=== PATIENT | female | born 1940 | race Caucasian/White ===

== ENCOUNTER 2016-07-19 19:25 | Observation (INO) | payer OTHER ==
[~2016-07-19] VITALS: Ht 154.9 cm; Wt 67.8 kg
[~2016-07-19 19:25] MED LIST: ALLERGY RELIEF10 M1 PO; AMBIZINE25 MG PO; ATENOLOL50 MG PO; BACTRIM,SEPT1 TABLET PO; BUPROPION HCL75 MG PO; CLARITIN10 M3 PO; CLONAZEPAM1 MG PO; COUMADIN1 MG PO; DIAZEPAM5 MG PO; FLEXERIL10 MG PO; HYDROCHLOROTHIA50 MG PO; Levaquin PO; OMEPRAZOLE20 M2 PO; PRILOSEC20 MG PO; SERTRALINE HCL50 MG PO; SIMVASTATIN40 MG PO; TRAMADOL HCL50 MG PO; TYLENOL EXTRA500 MG PO; ULTRAM50 MG PO; VICODIN 5-3001 EACH PO; ZOLOFT25 MG PO
[2016-07-19 20:10] LABS: HEMATOCRIT 36.9 % (36.0-46.0); MCH 26.4 PG (29.0-34.0); MCHC 30.9 G/DL (30.0-36.0); MCV 85.4 FL (83-99); MEAN PLAT.VOLUME 9.5 uM^3 (9.5-12.4); PLATELET COUNT 225 K/uL (156-360); RBC DIS.WIDTH-CV 23.5 % (11.8-14.6); RED BLOOD COUNT 4.32 M/uL (3.80-5.20); WHITE BLOOD COUNT 4.3 K/uL (4.1-10.2)
[2016-07-19 20:29] LABS: CHLORIDE 104 mEq/L (99-109); POTASSIUM 2.8 mEq/L (3.7-5.4); SODIUM 138 mEq/L (136-147)
[2016-07-19 20:30] LABS: GLUCOSE 105 mg/dL (70-99)
[2016-07-19 20:32] LABS: ANION GAP 14 MEQ/L (2-14)
[2016-07-19 20:34] LABS: GFR ESTIMATE (CALCULATED) > 59 mL/min/
[2016-07-19 20:35] LABS: UREA NITROGEN (BUN) 17 mg/dL (9-23)
[2016-07-19 20:39] LABS: TROP-I INTERPRETATION NEGATIVE; TROPONIN-I < 0.01 ng/mL (0.0-0.30)
[2016-07-19 21:17] LABS: TOTAL BILIRUBIN 0.3 mg/dL (0.0-1.0)
[2016-07-19 21:18] LABS: ALKALINE PHOSPHATASE 77 IU/L (3-129)
[2016-07-19 21:21] LABS: DIRECT BILIRUBIN 0.1 mg/dL (0.0-0.3)
[2016-07-19 21:22] LABS: LIPASE 25 U/L (1.0-51.0)
[2016-07-19] MEDS ORDERED: COUMADIN2 MG PO (23:25)
[2016-07-19] MEDS ORDERED: MECLIZINE HCL25 MG PO (23:26)
[2016-07-19] MEDS ORDERED: WARFARIN SODIUM2 MG PO (23:26)
[2016-07-19] MEDS ORDERED: ATENOLOL100 MG PO (23:27)
[2016-07-19] MEDS ORDERED: ADVAIR 500/501 DISK IH (23:27)
[2016-07-20 01:21] LABS: MAGNESIUM 2.3 mg/dL (1.3-2.7)
[2016-07-20 01:55] VITALS: BP 131/80
[2016-07-20 02:46] LABS: PROTHROMBIN TIME 31.4 (9.2-11.2)
[2016-07-20 02:56] LABS: TROP-I INTERPRETATION NEGATIVE; TROPONIN-I < 0.01 ng/mL (0.0-0.30)
[2016-07-20 04:03] VITALS: BP 103/57
[2016-07-20 07:55] VITALS: BP 146/65
[2016-07-20 10:07] LABS: MCH 26.9 PG (29.0-34.0); MCHC 31.1 G/DL (30.0-36.0); MCV 86.3 FL (83-99); MEAN PLAT.VOLUME 9.2 uM^3 (9.5-12.4); PLATELET COUNT 204 K/uL (156-360); RBC DIS.WIDTH-CV 23.9 % (11.8-14.6); RBC DIS.WIDTH-SD 72.5 % (39-53); RED BLOOD COUNT 4.17 M/uL (3.80-5.20); WHITE BLOOD COUNT 3.4 K/uL (4.1-10.2)
[2016-07-20 10:31] LABS: ALKALINE PHOSPHATASE 60 IU/L (3-129); ANION GAP 9 MEQ/L (2-14); CHLORIDE 105 MEQ/L (99-109); GFR ESTIMATE (CALCULATED) > 59 mL/min/; GLUCOSE 96 mg/dL (70-99); SAMPLE HEMOLYSIS CHECK 0; SAMPLE ICTERIC CHECK 0; SAMPLE LIPEMIA CHECK 0; SODIUM 140 MEQ/L (136-147); TOTAL BILIRUBIN 0.3 MG/DL (0.0-1.0); TROP-I INTERPRETATION NEGATIVE; TROPONIN-I < 0.01 ng/mL (0.0-0.30); UREA NITROGEN (BUN) 9 mg/dL (9-23)
[2016-07-20 10:39] LABS: ABS NEUTROPHIL COUNT 1.3; ATYPICAL LYMPHOCYTE 3.5 %; BAND NEUTROPHILS 0.9 % (0-8.0); EOSINOPHIL ABS CT 0.1; EOSINOPHILS 4.4 % (0-5.0); INSTRUMENT ABS NEUTROPHIL CT 1.3 K/uL; LYMPHOCYTES 49.1 % (15.0-45.0)
[2016-07-20 11:35] VITALS: BP 122/71
== END 2016-07-20 13:35 | disposition home or self-care (01) ==
LOC: EME 19:25 → EDOF 07-20 00:54 → 5WEST 07-20 01:34
PROVIDERS: Internal Medicine; Student in an Organized Health Care Education/Training Program
DX: K52.9 Noninfective gastroenteritis and colitis, unspecified (principal); R07.9 Chest pain, unspecified; E87.6 Hypokalemia; K21.9 Gastro-esophageal reflux disease without esophagitis; R94.31 Abnormal electrocardiogram [ECG] [EKG]; D68.2 Hereditary deficiency of other clotting factors
CPT/HCPCS: 71020; 80048; 80053; 80076; 83690; 83735; 84484; 85025; 85027; 85610; 93005; 99202; 99281; 99285; G0378; J2405; J3480